=== PATIENT | female | born 1955 | race Asian ===

== ENCOUNTER 2019-08-29 15:02 | Emergency (ER) | payer MEDICAID ==
[~2019-08-29] VITALS: Ht 162.6 cm; Wt 78.0 kg
[~2019-08-29 15:02] MED LIST: ALBU8.5H8 INH; ASPI-496 PO; ATOR20TA37 PO; CIPR500T3 PO; CLON1TAB PO; FLUT16SP24 NAS; FLUT1DIS IH; HYDR-3240 PO; HYDR-3245 PO; LISI5TAB7 PO; NITR100C6 PO
[2019-08-29 15:05] VITALS: BP 110/66
[2019-08-29] MEDS ORDERED: IBUPROFEN 600 MG TABLET ONE (15:50)
[2019-08-29] MEDS ORDERED: IBUPROFEN 200 MG TABLET PO ONE (16:00)
--- NOTE | 2019-08-29 16:46 | NUR ---
TASK RN: FIRST CONTACT WITH PT. PT REQUESTING CANE. PT STATES, "I AM TOO BRUISED TO USE THE CRUTCHES, I WANT A CANE."
--- NOTE | 2019-08-29 16:47 | NUR ---
Patient given discharge instructions and they have confirmed that they understand the instructions. Patient ambulatory with steady gait with cane provided. Pt left with cane, taxi voucher, d/c paperwork, and all personal belongings. NADN. No needs expressed.
== END 2019-08-29 16:56 | disposition home or self-care (01) ==
LOC: ED 15:56
DX: S76.811A Strain of other specified muscles, fascia and tendons at thigh level, right thigh, initial encounter (principal); S20.212A Contusion of left front wall of thorax, initial encounter; I10 Essential (primary) hypertension; W19.XXXA Unspecified fall, initial encounter; Y93.89 Activity, other specified; Y92.488 Other paved roadways as the place of occurrence of the external cause; Y99.8 Other external cause status
CPT/HCPCS: 71045; 99283